=== PATIENT | female | born 1985 ===

== ENCOUNTER 2020-06-24 13:00 | Emergency (ER) | payer SELFPAY ==
[~2020-06-24] VITALS: Ht 157.5 cm; Wt 55.0 kg
[2020-06-24 13:01] VITALS: BP 117/73
--- NOTE | 2020-06-24 13:58 | NUR ---
PATIENT REFUSES TO GET IN A GOWN, PT REFUSES TO GO TO XRAY. PATIENT NOT TALKING TO STAFF.
--- NOTE | 2020-06-24 13:58 | NUR ---
PATIENT ASKED TO LEAVE IF SHE IS NOT WANTING OUR HELP. PT REFUSES.
--- NOTE | 2020-06-24 14:02 | NUR ---
PT REFUSES TO SIGN AMA, PT WALKED OUT OF ED BY SECURITY
== END 2020-06-24 14:05 | disposition left against medical advice (07) ==
LOC: ED 14:00
DX: S39.012A Strain of muscle, fascia and tendon of lower back, initial encounter (principal); S33.5XXA Sprain of ligaments of lumbar spine, initial encounter; Y08.89XA Assault by other specified means, initial encounter; Y93.89 Activity, other specified; Y92.89 Other specified places as the place of occurrence of the external cause; Y99.8 Other external cause status
CPT/HCPCS: 99283